=== PATIENT | female | born 1950 | race Asian ===

== ENCOUNTER 2019-08-31 10:41 | Day surgery (SDC) | payer OTHER | END 2019-08-31 13:50 | disposition home or self-care (01) | LOC: OR 10:41 | PROC: 3E0R33Z Introduction of Anti-inflammatory into Spinal Canal, Percutaneous Approach (ICD-10-PCS; principal; 2019-08-31) | PROC: B01BYZZ Fluoroscopy of Spinal Cord using Other Contrast (ICD-10-PCS; 2019-08-31) | DX: M50.123 Cervical disc disorder at C6-C7 level with radiculopathy (principal) ==